=== PATIENT | female | born 2000 | race Caucasian/White ===

== ENCOUNTER 2023-02-25 13:59 | Emergency (ER) | payer OTHER, SELFPAY ==
[2023-02-25 14:10] VITALS: BP 136/84; PULSE 100; O2SAT 98
[2023-02-25 14:14] VITALS: BP 143/90; PULSE 88; RESP 16; TEMP 36.3; O2SAT 99; BMI 23.2
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
--- NOTE | 2023-02-25 15:11 | PC.NURSE ---
pt medicated per JUL, c-collar remains in place pending CT results.
--- NOTE | 2023-02-25 18:18 | PC.NURSE ---
pt medicated per JUL. continuing to report 10/10 neck/head pain w associated nausea.
[2023-02-25 18:50] VITALS: BP 128/89; PULSE 76; RESP 18; TEMP 36.8; O2SAT 99
== END 2023-02-25 19:30 | disposition home or self-care (01) ==
PROVIDERS: Emergency Provider Emergency Medicine Emergency Medical Services
DX: S13.4XXA Sprain of ligaments of cervical spine, initial encounter (principal); M54.50 Low back pain, unspecified; R51.9 Headache, unspecified; M54.2 Cervicalgia; R10.2 Pelvic and perineal pain; V43.52XA Car driver injured in collision with other type car in traffic accident, initial encounter; Y93.9 Activity, unspecified; Y92.410 Unspecified street and highway as the place of occurrence of the external cause; Y99.9 Unspecified external cause status; Z79.899 Other long term (current) drug therapy
CPT/HCPCS: 36415; 70450; 72125; 74177; 80048; 83690; 83735; 84702; 85025; 99283; 99284; Q9967